=== PATIENT | male | born 1965 | race Caucasian/White ===

== ENCOUNTER 2016-05-16 18:15 | Inpatient (IN) | payer OTHER ==
[~2016-05-16] VITALS: Ht 175.3 cm; Wt 78.8 kg
--- NOTE | ~2016-05-16 | DS ---
PATIENT'S NAME: VITOR MELARA [facility] AGE: 50 Y [address] ROOM: [id number] [place] [address] [place] [facility] [place]: 05/16/2016 Discharge Summary DISCHARGE DATE: 05/17/2016 FAMILY PHYSICIAN: Sky Norwood MD ATTENDING PHYSICIAN: Dc Dunlap DISCHARGE DIAGNOSES: 1. 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 2. Esophagitis. 3. Thrush. 4. Metastatic melanoma. 5. Hypertension. DISCHARGE MEDICATIONS: Include, 1. Fluconazole 200 mg tablet p.o. daily as directed. 2. Gabapentin 300 mg p.o. t.i.d. 3. Keppra 500 mg p.o. b.i.d. 4. Prednisone 40 mg p.o. t.i.d. with a taper as directed. 5. Bystolic 10 mg p.o. daily. 6. Nystatin 1000 units/5 mL q.i.d. p.r.n. sore throat. 7. Omeprazole 20 mg p.o. b.i.d., may be substituted for Prevacid 15 mg p.o. b.i.d. 8. Bactrim DS 1 tablet b.i.d. on Mondays and . 9. Spironolactone 25 mg p.o. b.i.d. 10. Ambien 10 mg p.o. q.h.s. p.r.n. 11. Magic Mouthwash 5 to 10 mL swish and swallow p.r.n. 12. Mylanta 60 mL p.o. q. 20 minutes p.r.n. heartburn. HISTORY OF PRESENT ILLNESS/HOSPITAL COURSE: Vitor Melara is a 50-year-old male with a diagnosis of metastatic melanoma diagnosed on 02/13/2015 and for further evaluation and further records, please review the admission H and P. He has most recently received treatment with ipilimumab and nivolumab which were started on 02/26/2016 and completing two cycles before he had a whole- brain radiation, at which point a break in therapy occurred. Subsequently developed hospitalization on 05/01/2016, at which point, he was treated with high-dose steroids and infliximab before resolution of the diarrhea. He has been on a slow taper as an outpatient since but has increased diarrhea for two days prior to admission, and he felt he was becoming volume depleted and having increasing problems with eating and drinking and heartburn, so he was admitted on 05/16/2016 for further evaluation and treatment. His treatment included changing his oral steroids to Solu-Medrol 60 mg IV q.8 hours. Additionally, he was found to have significant thrush which was likely contributing to his significant heartburn. He was started on IV pantoprazole and treated for thrush with Diflucan and symptomatic measures including a GI cocktail and salt and soda rinses. His blood pressure was quite elevated at PATIENT'S NAME: VITOR MELARA [facility] AGE: 50 Y [address] ROOM: [place] [address] [place] [facility] [place]: 05/16/2016 Discharge Summary DISCHARGE DATE: 05/17/2016 FAMILY PHYSICIAN: Sky Norwood MD ATTENDING PHYSICIAN: Dc Dunlap presentation and he has been previously maintained on Bystolic 5 mg daily, this was increased on the evening he presented to the 10 mg that evening and then 10 mg daily thereafter with much better control of blood pressure. In the following 12 to 24 hours, his symptoms significantly improved and then the subsequent day he had no stools at all. His esophagitis complaints improved and resolved, and his thrush is markedly better with therapies given. As the patient is doing better, we will switch to oral prednisone and taper it as an outpatient and discharge the patient today. CONDITION UPON DISCHARGE: The patient is in very stable condition. No stools over the past 14 to 16 hours. His volume status is stable. His thrush is resolved and esophagitis is resolved. FOLLOWUP: Followup will be with CBCs once a week and phone calls twice a week to help with tapering his steroids. I will plan on seeing him back in three weeks in clinic as scheduled already. MD TAY ZAMORA/gabriel /[id number] d: 05/17/16 2247 t: 05/21/16 0753, DISCHARGE SUMMARY
[~2016-05-16 18:15] MED LIST: ALDACTONE25 MG PO; ALEVE220 M1; AMBIEN10 MG PO; ANUSOL-HC CREAM30 GM R; AQUAPHOR1 GM TOP; BACTRIM DS1 TAB PO; BYSTOLIC10 MG PO; BYSTOLIC5 MG PO; DECADRON4 MG PO; DELTASONE10 MG PO; KEPPRA500 MG PO; KEYTRUDA50 MG IV; NEURONTIN300 MG PO; NICODERM/HABITR21 MG TRANS; NORCO 5-325 MG1 TAB PO; PERCOCET 5-3251 EACH PO; TORADOL10 MG PO
[2016-05-16] MEDS ORDERED: MAG119MX MM (20:01)
[2016-05-16] MEDS ORDERED: MYLANTA (MAG-AL30 ML PO (20:02)
[2016-05-16] MEDS ORDERED: DIFLUCAN200 MG PO (20:03)
[2016-05-16] MEDS ORDERED: PREVACID15 MG PO (20:04)
[2016-05-16] MEDS ORDERED: PRILOSEC20 MG PO (20:04)
--- NOTE | 2016-05-17 02:13 | NUR ---
Pt arrived to floor around 184. Here to recieve Solu-medrol, and dehydration. Pt is having several loose stools a day, we are to keep close track while in hosptial. Long hx of cancer. HTN. Pt has hard time eating or drinking due to heartburn. Was just in the hospital about a week ago. Very hard stick but were able to get IV to the R)fa.
--- NOTE | 2016-05-17 05:11 | NUR ---
Significant Event: Pt is alert and oriented. Hypertensive on RA. Pt is a very hard poke, ER came up and placed an IV in the R)FA SL. Family is saying DR ordered fluids, but there were no orders written. Flu/pneumonia consents are in chart, needing to be signed. Ambulates independently. Follow Up: Continue to monitor stool output.
--- NOTE | 2016-05-17 17:30 | NUR ---
Significant Event:Is A/O.Has been pretty comfortable.States feels much better.No stools this shift.States mouth & throat feel much better too.Has been up.Eating/drinking well.No N/V.Has IV fld running at 20ml/hr TKO iv Rt.arm.Hoping to maybe go home. Follow up:
[2016-05-17] MEDS ORDERED: NYSTATIN100000 UNI PO (19:08)
--- NOTE | 2016-05-18 07:25 | NUR ---
Significant Event: PATIENT WAS DISCHARGE TO HOME AT 1900. MEDICATION LIST GONE OVER DISCHARGE INSTRUCTIONS AND TEACHING VERBALLY GONE OVER PATIENT VERBALLY ACKNOWLEDGES UNDERSTANDING. LET VIA WHEEL CHAIR AND WAS TRANSPORTED IN PARENTS VEHICLE. Follow up:
--- NOTE | 2016-05-22 09:49 | NUR ---
Post hospitalization follow up call made to patient. Patient reports he has no questions regarding his follow up and medications. Had a good hospital stay with the exception of his IV start, which he states took several attempts. Talked with patient about getting a port and he will discuss this with Dr. Dunlap. Will continue to follow patient as his navigator.
== END 2016-05-17 19:00 | disposition disaster alternative care site (69) | DRG 394 ==
LOC: GMSU 18:17
PROVIDERS: ADMIT Internal Medicine Hematology & Oncology
DX: K52.1 Toxic gastroenteritis and colitis (principal); C79.31 Secondary malignant neoplasm of brain; C43.59 Malignant melanoma of other part of trunk; I10 Essential (primary) hypertension; B37.9 Candidiasis, unspecified; K20.9 Esophagitis, unspecified; J45.909 Unspecified asthma, uncomplicated; F17.220 Nicotine dependence, chewing tobacco, uncomplicated; T38.0X5A Adverse effect of glucocorticoids and synthetic analogues, initial encounter
CPT/HCPCS: C9113; J2930; J7050

== ENCOUNTER → 2016-06-20 | Outpatient (CLI) | payer OTHER ==
[~2016-06-20] MED LIST changes: +ATIVAN 0.5MG0.5 MG PO; +DECADRON1 MG PO; +DIFLUCAN200 MG PO; +LEVOTHROID (SY50 MCG PO; +MAG119MX MM; +MORPHINE 20MG/ML PO; +MYCOSTATIN OINT30 GM TOP; +MYLANTA (MAG-AL30 ML PO; +NYSTATIN100000 UNI PO; +PREVACID15 MG PO; +PRILOSEC20 MG PO; +PRINIVIL (ZESTR20 MG PO; +TYLENOL325 MG PO
== END | disposition disaster alternative care site (69) ==
LOC: GRAD 12:56
DX: C43.59 Malignant melanoma of other part of trunk (principal); C79.31 Secondary malignant neoplasm of brain; C79.9 Secondary malignant neoplasm of unspecified site; G40.409 Other generalized epilepsy and epileptic syndromes, not intractable, without status epilepticus; K52.1 Toxic gastroenteritis and colitis
CPT/HCPCS: Q9967

== ENCOUNTER → 2016-07-16 | Outpatient (CLI) | payer OTHER, SELFPAY | END | disposition disaster alternative care site (69) | LOC: GRAD 13:18 | DX: M79.89 Other specified soft tissue disorders (principal); R22.1 Localized swelling, mass and lump, neck; G93.89 Other specified disorders of brain; Z85.841 Personal history of malignant neoplasm of brain; Z85.830 Personal history of malignant neoplasm of bone; Z85.05 Personal history of malignant neoplasm of liver; Z85.118 Personal history of other malignant neoplasm of bronchus and lung | CPT/HCPCS: A9577 ==

== ENCOUNTER → 2016-08-07 | Outpatient (CLI) | payer OTHER ==
--- NOTE | ~2016-08-07 | NDGEN ---
PATIENT'S NAME: VITOR DEL TORO [facility] AGE: 50 Y [address] ROOM: [place] [address] LOCATION: [facility] ADMIT DATE: 08/07/2016 Neurodiagnostics DISCHARGE DATE: FAMILY PHYSICIAN: Sky Norwood MD ATTENDING PHYSICIAN: Joi Rawls PROCEDURE: ELECTROENCEPHALOGRAM DATE OF PROCEDURE: 08/07/2016 TEST: TECH: CLINICAL DIAGNOSIS: DURATION OF EE minutes. REASON FOR EEG: Seizures. CLINICAL HISTORY: The patient is a 50-year-old male with history of melanoma with secondary metastasis to the brain who had a seizure one day prior to the recording, he is undergoing radiation at this time. EEG FINDINGS: The patient was awake for majority of the EEG. During the awake portions of EEG, a 10 to 11 Hz background is seen in the posterior head regions, which is symmetrical rhythmical waxing and waning. Activation procedures included photic stimulation between 3 to 30 Hz, which did not show any abnormalities. CLASSIFICATION: Normal, awake, drowsy, 10/20 scalp electrodes. IMPRESSION: This EEG is within normal limits. No epileptiform discharges or EEG seizures were seen during this recording. MD LIDA MOSLEY/gabriel /[id number] dtt: 08/13/16 1734 , CEDRIC RIBEIRO dtd: 08/12/16 1135
== END | disposition disaster alternative care site (69) ==
LOC: GNEU 10:00
DX: C79.31 Secondary malignant neoplasm of brain (principal); C80.1 Malignant (primary) neoplasm, unspecified

== ENCOUNTER → 2016-09-05 | Outpatient (CLI) | payer OTHER | END | disposition disaster alternative care site (69) | LOC: GRAD 09-04 13:00 | DX: C71.9 Malignant neoplasm of brain, unspecified (principal); G93.89 Other specified disorders of brain; Z92.3 Personal history of irradiation | CPT/HCPCS: A9577 ==

== ENCOUNTER 2016-09-21 06:10 | Observation (INO) | payer OTHER ==
[~2016-09-21] VITALS: Ht 172.7 cm; Wt 80.0 kg
--- NOTE | ~2016-09-21 | CON ---
PATIENT'S NAME: VITOR MELARA [facility] AGE: 50 Y [address] ROOM: [place] [address] [place] [facility] [place]: 09/21/2016 Consultation DISCHARGE DATE: FAMILY PHYSICIAN: Sky Norwood MD ATTENDING PHYSICIAN: Selina Nagy DATE OF CONSULTATION: 09/21/2016 REFERRING PHYSICIAN: Selina Nagy MD. LOCATION: [place] [address]. This is a palliative care referral for end of life and hospice discussion and goals of care. HISTORY OF PRESENT ILLNESS: This 50-year-old male was admitted on 09/21/2016, with increased confusion and falling. He has a known history of metastatic melanoma. He has been on immunotherapy and doing radiation and had 5 treatments of radiation, 07/28 radiation treatments for whole brain radiation. The patient had been falling more at home, more confused, and more agitated; and had a seizure. The patient had been on Keppra in the past. He was admitted to [facility] for higher level of care. The patient is lying in bed. He does answer questions somewhat appropriately. He knows his family, not time and place. He does complain of some headaches at times. He denies headaches at present time. He had been taking Tylenol a lot at home. No shortness of breath. No nausea or vomiting. Appetite had been good. The patient had been impulsive and getting up on his own, but unable to walk, so was crawling and pulling himself upstairs. PAST MEDICAL HISTORY: Metastatic melanoma, hypertension, and seizures. PAST SURGICAL HISTORY: Bladder surgery. Multiple surgeries to remove melanoma. SOCIAL HISTORY: He is , has 2 daughters. He has used chewing tobacco 1 can per day in the past. Alcohol history, 2 drinks a month. No known illicit drug use. ALLERGIES: PATIENT'S NAME: VITOR MELARA [facility] AGE: 50 Y [address] ROOM: [place] [address] [place] [facility] [place]: 09/21/2016 Consultation DISCHARGE DATE: FAMILY PHYSICIAN: Sky Norwood MD ATTENDING PHYSICIAN: Selina Nagy NO KNOWN ALLERGIES. HOME MEDICATIONS: 1. Dexamethasone 2 mg q.i.d. 2. Diflucan 200 mg daily, started on 09/20/2016. 3. Spironolactone 25 mg b.i.d. 4. Synthroid 0.05 mg daily. 5. Omeprazole 40 mg daily. 6. Diastolic 10 mg b.i.d. 7. Bactrim DS one tab b.i.d. 2 days a week. 8. Keppra 500 mg b.i.d. 9. Gabapentin 300 mg t.i.d. FAMILY HISTORY: Grandparents had heart disease. Father has diabetes. Mother has arthritis. REVIEW OF SYSTEMS: A complete review of systems was done and is negative except as mentioned in the HPI. PHYSICAL EXAMINATION: GENERAL: This is a 50-year-old male, in no acute distress. VITAL SIGNS: Temperature 98, pulse 79, respirations 18, and blood pressure 174/100. He is 5 feet 8 inches, weighs 176 pounds with BMI of 26.8. GENERAL: Alert to name and self, not place and time. SKIN: Warm and dry. Color pale. HEENT: Normocephalic and atraumatic. Sclerae are nonicteric. Conjunctivae are pale and pink. Mouth is dry and crusty. Tongue is coated. He states he had been started on Diflucan recently. LYMPHATICS: No cervical adenopathy or thyromegaly. RESPIRATORY: Clear to auscultation bilaterally. Breath sounds even and regular throughout. CARDIAC: S1 and S2 without murmurs or bruits. No lower extremity edema. ABDOMEN: Soft and nontender. Positive bowel tones. No hepatosplenomegaly. NEURO: Grossly intact. Increased weakness in lower extremities. MUSCULOSKELETAL: Decreased strength in extremities. EXTREMITIES: No cyanosis or deformities. Palliative performance scale is 40%. Mainly bed bound, unable to do most activity, total care, normal intake. Conscious level is drowsy with some confusion. LABORATORY DATA: White count is 6.8, hemoglobin 14.7, hematocrit 40.8, and platelets are 166. Sodium 131, potassium 4.0, glucose is 153, BUN 21, creatinine 0.8, albumin PATIENT'S NAME: VITOR MELARA [facility] AGE: 50 Y [address] ROOM: [place] [address] [place] [facility] [place]: 09/21/2016 Consultation DISCHARGE DATE: FAMILY PHYSICIAN: Sky Norwood MD ATTENDING PHYSICIAN: Selina Nagy 2.7, alkaline phosphatase is 73, AST is 39, and ALT is 120. GFR is greater than 70. IMAGING STUDIES: CT of the head revealed worsening overall appearance of the brain prior to imaging multiple hemorrhagic neoplastic lesions present with lesions in both central hemispheres. Lesions are increasing in size since prior imaging. Extensive vasogenic edema associated with brain lesions with extent and vasogenic edema appearing somewhat increased since prior imaging. No acute extra-axial hemorrhage or midline shift. IMPRESSION: Confusion, weakness, and fatigue and oral candidiasis. PLAN: Discussion of chronic condition and goals of care. Met with the patient and his mom, Ana Melara and father, Red Melara, and daughter, Aditi. Discussed overall conditions and discussion from Dr. Nagy. The patient states he knows his lesions are getting worse and he is having more difficulty taking care of himself. DISCUSSED GOALS OF CARE: 1. Wants to get home as soon as possible. 2. Talk with Dr. Dunlap and Dr. Sauer on recommendations for further treatment versus hospice. 3. To talk with hospice sales and marketing representative called [facility]. [facility], wafer production lead worker is coming up at 1600 today. 4. To go home and stay at home as long as possible. Prefers not to go to a care home if at all possible. Discussed safety factors that the patient may need to not get up and have help getting up and increased caregiving. Discussed the patient and family support at home. Code status and advanced directive. The patient is currently a do not resuscitate/do not intubate. We will check on advanced directive with family. RECOMMENDATIONS: Headache: Schedule some Tylenol q.i.d. The patient forgets to ask for Tylenol. He had been taking Tylenol pretty regular at home for his headaches. The patient does not like to take narcotics, makes him more confused, also has dexamethasone, increased dose ordered. Seizures, he is on Keppra and dexamethasone. Oral candidiasis, already on Diflucan. Had been on Magic Mouth but he doesn't like it. We will add saline rinses. We will follow up with the patient and family in the a.m. after talking with Dr. Dunlap on goals of care. PATIENT'S NAME: VITOR MELARA [facility] AGE: 50 Y [address] ROOM: [facility] [place] [place], [place] [address] [place] [facility] [place]: 09/21/2016 Consultation DISCHARGE DATE: FAMILY PHYSICIAN: Sky Norwood MD ATTENDING PHYSICIAN: Selina Nagy Thank you for allowing me to assist with this patient and family. MARY QUINTERO NP FOR MD ZENOBIA VELASQUEZ/modl /[id number] cc: [facility] Hemotology d: 09/22/16 1218 t: 09/26/16 1712, CONSULTATION REPORT
--- NOTE | ~2016-09-21 | CON ---
PATIENT'S NAME: VITOR DEL TORO [facility] AGE: 50 Y [address] ROOM: [place] [address] LOCATION: [facility] [place] ADMIT DATE: 09/21/2016 Consultation DISCHARGE DATE: FAMILY PHYSICIAN: Sky Norwood MD ATTENDING PHYSICIAN: Selina Nagy REFERRING PHYSICIAN: Steve Armijo MD CHIEF COMPLAINT: Seizure. HISTORY OF PRESENT ILLNESS: The patient is a 50-year-old gentleman with past medical history of metastatic melanoma, he has been treated with PD-1 checkpoint inhibitor and [id number] inhibitor with history of brain radiation, who presents here with seizure. The patient was admitted on September 21, 2016 when he experienced seizure. According to mother, the patient has multiple seizures in the past, but however, this seizure was noted to be worse than other. The patient was transferred to our hospital and had a CT in the emergency department. CT showed worsening in all over appearance of the brain since prior imaging with multiple hemorrhagic neoplastic lesions, presented with lesions in both cerebral hemisphere. Lesions are increased in size with prior imaging and also extensive vasogenic edema cessation with brain lesion with extent of vasogenic edema appearing somewhat increased since prior imaging. Of note, the patient had rapid response called this morning for tonic-clonic seizure. The seizure lasted a few minutes. No medication was given. The patient was improved and there was no postictal confusion. The patient currently denies headache, vision change, abdominal pain, nausea, vomiting, chest pain, fever, chills, diarrhea, or constipation. MEDICAL HISTORY: 1. Metastatic melanoma. 2. Hypertension. 3. Seizure disorder. SURGICAL HISTORY: Brain radiation. FAMILY HISTORY: Breast cancer in grandmother and father has a history of hypertension. SOCIAL HISTORY: The patient chew tobacco and have one or two beers occasionally. MEDICATIONS: Please see MAR. PATIENT'S NAME: VITOR [facility] AGE: 50 Y [address] ROOM: [place] [address] LOCATION: [facility] [place] ADMIT DATE: 09/21/2016 Consultation DISCHARGE DATE: FAMILY PHYSICIAN: Sky Norwood MD ATTENDING PHYSICIAN: Selina Nagy REVIEW OF SYSTEMS: All systems have been reviewed and are negative except what is mentioned in the HPI. PHYSICAL EXAMINATION: VITAL SIGNS: Temperature 96.8, blood pressure 144/106, pulse of 73, respiratory rate 14. GENERAL APPEARANCE: The patient alert and awake in bed, in no acute distress. CHEST: Clear to auscultation bilaterally. HEAD: Normocephalic, atraumatic. NOSE: No nasal bleeding. EARS: No ear discharge. EYES: Extraocular muscle intact. CHEST: Clear to auscultation bilaterally. HEART: Regular rate and rhythm. No murmurs, rubs, or gallops. ORAL CAVITY: Moist oral cavity. ABDOMEN: Soft, nontender, and nondistended. Bowel sounds present. MUSCULOSKELETAL: Range of motion intact. No obvious joint effusion. FLIGHT/TRANSPORT NURSE: The patient is alert and oriented x3. Motor and sensory grossly intact. LABORATORY DATA: Lab drawn from yesterday shows BUN of 21, creatinine 0.8, sodium 131, potassium of 4, chloride 100, CO2 of 18. CBC shows white blood cell count 6.8, hemoglobin 4.7, platelet of 166. ASSESSMENT AND PLAN: 1. Seizure disorder. Etiology secondary to metastatic melanoma with worsening image. The patient currently on 500 Keppra p.o. The patient experienced tonic-clonic seizure today, I was present at the bedside. The patient's seizure lasted a few minutes with no postictal confusion; however, does not remember the event. No tongue biting. No urinary incontinence. We will continue to have 2 mg Ativan p.r.n. every 5 minute for seizure. We will increase Keppra from 500 b.i.d. to 1000 b.i.d. we will give the first 1000 mg via IV seizure precaution. We will hold radiation today. We will follow clinically. 2. Metastatic melanoma. The patient is scheduled for a brain radiation; however, due to today's event, we will hold radiation and we will see how he does with 1000 mg Keppra. 3. Hypertension, uncontrolled. The patient currently on his home dose of Bystolic and will add his home dose of spironolactone 25 mg p.o. b.i.d. 4. Palliative care. The patient is currently on palliative care and is getting his radiation with Palliative Care on board. The patient is scheduled to go home after radiation. The patient reports to have one or two beers while he is here. We will allow the patient to have one or two PATIENT'S NAME: VITOR [facility] AGE: 50 Y [address] ROOM: [place] [address] LOCATION: [facility] [place] ADMIT DATE: 09/21/2016 Consultation DISCHARGE DATE: FAMILY PHYSICIAN: Sky Norwood MD ATTENDING PHYSICIAN: Selina Nagy can of 12 ounce in 24 hours while he is here. Greater than 30 minutes critical care was spent on the patient's care due to the rapid response and seizure. Discussed case with Dr. Baum and Dr. Sauer. We will hold radiation today as the patient is having multiple seizures since yesterday's admission and will to be on risk to have seizure while on radiation. We will increase the patient's Keppra to 1000 and observe overnight. MD SONY GAO/gabriel /[id number] d: 09/22/16 1510 t: 09/28/16 1223, CONSULTATION REPORT
--- NOTE | ~2016-09-21 | HP ---
PATIENT'S NAME: VITOR DEL TORO [facility] AGE: 50 Y [address] ROOM: [address] [address] LOCATION: [facility] ADMIT DATE: 09/21/2016 History & Physical DISCHARGE DATE: FAMILY PHYSICIAN: Sky Norwood MD ATTENDING PHYSICIAN: Patti Nagy DATE OF SERVICE: REASON FOR HOSPITALIZATION: The patient is a 50-year-old male, who has been diagnosed with metastatic melanoma, and he has been on PD-1 checkpoint inhibitor as well as anti CTLA-4 inhibitors with progressive disease. He was treated recently with whole-brain radiation in April for brain metastases. Most recently, the patient had increase in size in his brain lesions, and he has received 5 days of lower dose of radiation to help treat his brain mets. The patient's mother called me yesterday, and said that he is more agitated and a little bit confused and having some problems with sore throat. She did not want to bring him into the emergency room; however, we did get him some Diflucan, which seemed to help with his sore throat. This morning, the patient had a seizure, that was much bigger than his usual seizures, so the ambulance brought him into the emergency room. When the patient was getting a CT scan done in the emergency room, he did have another seizure. The patient's mother says that he does have little seizures where he just kind of tremors and jerks a little bit, but he can "get himself out of it." The patient does have headaches. These headaches do come and go, but he has not taken much in the way of pain medication because he does not want to get addicted to it, although he does have some oxycodone at home. The patient was thinking about getting set up on hospice prior to when his radiation started approximately a week and half ago; however, he was told that he could not be on radiation and be on hospice at the same time. PAST MEDICAL HISTORY: Really is metastatic melanoma, little hypertension. SOCIAL HISTORY: The patient has 2 children, a 19-year-old and a 14-year-old. He does chew tobacco. MEDICATIONS: He is on: PATIENT'S NAME: VITOR DEL TORO [facility] AGE: 50 Y [address] ROOM: [id number] [place], [place] [address] LOCATION: [facility] ADMIT DATE: 09/21/2016 History & Physical DISCHARGE DATE: FAMILY PHYSICIAN: Sky Norwood MD ATTENDING PHYSICIAN: Patti Nagy 1. Dexamethasone 2 mg p.o. q.i.d. 2. Diflucan 200 mg daily, started on 09/20/2016. 3. Spironolactone 25 mg b.i.d. 4. Synthroid 0.05 mg a day. 5. Omeprazole 40 mg a day. 6. Bystolic 10 mg b.i.d. 7. Bactrim DS one p.o. b.i.d. 2 days a week. 8. Keppra 500 mg p.o. b.i.d. 9. Gabapentin 300 mg t.i.d. PHYSICAL EXAMINATION: GENERAL: The patient is alert and oriented, and appears to be in no distress. HEENT: His pupils appear to be fairly equal. There is no scleral icterus present. Extraocular muscles are intact. Mouth is dry. His tongue has a little crusting on it. NECK: Supple without adenopathy or thyromegaly. Trachea is in the midline. HEART: Regular. Lungs are clear anteriorly. ABDOMEN: Mildly distended, but it is soft and non-tympanic to percussion. EXTREMITIES: He has a few ecchymoses on his lower extremities, but he has no edema present. NEURO: He does move all the extremities appropriately, and there are no focal deficits noted at this time. IMAGING DATA: CT scan done in the emergency room showed significant increased size in his lesions in his brain compared to 09/05/2016 and 07/16/2016, left frontal lesion was 1.7 cm, now is 2.6 cm, several other ones are larger, and he does have increased vasogenic edema as well. IMPRESSION: 1. Metastatic melanoma with increasing size of his brain lesions after 5 days of radiation, and it is very likely not going to be beneficial for him, and his mother does say it is getting more difficult to get him over to radiation. 2. Thrush, on Diflucan. 3. Headache seemed to be okay at this time. RECOMMENDATIONS: 1. I talked with the patient and his parents about options at this point. I do agree that hospice would be in his best benefit. I did tell them that I am not really optimistic that radiation is actually going to slow down the progression of his tumor. 2. The patient did ask me how he was going to and if it was going to be painful. I did tell him that we have a lot of supportive medications that can help with pain from his headaches. Otherwise, I did not think PATIENT'S NAME: VITOR DEL TORO [facility] AGE: 50 Y [address] ROOM: [address] [address] LOCATION: [facility] ADMIT DATE: 09/21/2016 History & Physical DISCHARGE DATE: FAMILY PHYSICIAN: Sky Norwood MD ATTENDING PHYSICIAN: Patti Nagy that it would be painful. He could either get more somnolent or have seizure activity that could cause him to be more obtunded and just lose consciousness and pass away, or if he does have significant problems with headaches, sometimes narcotics can make him more obtunded and dehydrated etc., and have him pass away peacefully. 3. The patient is worried about what to tell his children. They did not know how sick he is, and I told him that palliative care nurses and hospice could help assist with that conversation. 4. The patient really would like to get home. He is still considering going to [facility] just to see if they have anything else to offer him, although I do not hope that lot of help that he be able to get up there just because of his decreased performance status and they likely do not have anything to offer. PATTI NAGY MD CML/modl /[id number] D: T: 609 HISTORY & PHYSICAL
--- NOTE | ~2016-09-21 | DS ---
PATIENT'S NAME: VITOR MELARA [facility] AGE: 50 Y [address] ROOM: [facility] [place], [place] [address] LOCATION: [facility] ADMIT DATE: 09/21/2016 Discharge Summary DISCHARGE DATE: 09/23/2016 FAMILY PHYSICIAN: Sky Norwood MD ATTENDING PHYSICIAN: Selina Nagy HISTORY OF PRESENT ILLNESS: Mr. Vitor Melara is a 50-year-old male, who was admitted to the hospital for evaluation and treatment of tonic- clonic seizures and headaches. The history of the present illness and past medical history is well-documented in Dr. Nagy' history and physical, as well as the consultations from Dr. Sebastian and Yue Townsend APRN, and will not be repeated here. LABORATORY AND X-RAY: Upon admission, the white count was 6800 with 79% neutrophils, the hemoglobin was 14.7, the MCV was 108, and the platelets were 166,000. The INR was 0.9 and the PTT was 22. The CMS upon admission revealed that the sodium was 131, the glucose was 153 mg/dL, the calcium was 8.1 mg/dL, and the albumin was 2.7 g/dL; the ALT was 120 international units/L. On the day of dismissal, the sodium was 134 mmol/L and the glucose was 128. CAT scan of the brain was compared to the MRI study done on 09/05/2016. There were persistent and multiple hemorrhagic lesions in the brain parenchyma. The lesions had increased in size. A lesion in the inferior left frontal lobe had increased from 1.7 cm to 2.6 cm. A lesion in the left occipital lobe had increased to 3.1 cm. A lesion in the high right parietal lobe had increased from 3.7 cm to 4.2 cm. A lesion in the right frontal lobe had increased from 1.6 cm to 1.9 cm. The vasogenic edema was worse as well. HOSPITAL COURSE: The patient was admitted. The aforementioned laboratory and x-rays were obtained. Dr. Sauer visited with the patient about the potential benefit and potential harm of further radiation therapy. The patient initially decided to pursue radiation, but quickly decided not to. The levetiracetam dose was checked. The levetiracetam level was 14 ug/mL with the upper limits of normal being 30 ug/mL. Dr. Sebastian increased the patient's levetiracetam dose from 500 b.i.d. to 1000 b.i.d. The patient's dexamethasone was increased from 2 mg p.o. t.i.d. as an outpatient to 4 mg p.o. q.i.d. The patient had several tonic-clonic seizures while hospitalized. However, his headache improved and his seizures were under control at the time of his discharge. We felt this happy result was probably due to the increased dexamethasone and t levetiracetam. He was also on gabapentin and this was continued. Yue Townsend followed the patient for palliative care and visited with the patient and family regarding his situation. The patient developed impressive systolic and diastolic hypertension while in the hospital, although it is unclear whether this was symptomatic. On the day of dismissal, his blood pressure was 175/115 without any symptoms. His antihypertensives were adjusted by the PATIENT'S NAME: VITOR MELARA [facility] AGE: 50 Y [address] ROOM: [place] [address] LOCATION: [facility] ADMIT DATE: 09/21/2016 Discharge Summary DISCHARGE DATE: 09/23/2016 FAMILY PHYSICIAN: Sky Norwood MD ATTENDING PHYSICIAN: Selina Nagy hospitalist. We also believe his arterial hypertension is due to increased intracranial hypertension, and believe this should improve if the dexamethasone is effective. We acknowledged his situation was grim, and the patient chose to go on Hospice. He was reassured that if he developed status epilepticus, he could be re-hospitalized. If he developed unacceptable headaches, palliative sedation with a possible combination of ketamine, fentanyl, and midazolam could be employed. The [facility] saw the patient in consultation, and admitted him to their service. When these arrangements were made, the patient was discharged on 09/23/2016. DISCHARGE DIAGNOSES: 1. Tonic-clonic seizures and headaches due to increased intracranial pressure due to stage IV cutaneous melanoma. 2. 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 3. Hypertensive urgency secondary to essential arterial hypertension and increased intracranial pressure. 4. History of alcoholism. 5. Fecal and urinary incontinence secondary to #1. 6. Grade 3 colitis secondary to ipilimumab plus nivolumab, quiescent. DISCHARGE MEDICINES: 1. APAP 650 mg p.o. four times daily. 2. Dexamethasone 4 mg p.o. q.i.d. 3. Fluconazole 200 mg p.o. b.i.d. 4. Gabapentin 300 mg p.o. t.i.d. 5. Levetiracetam 1000 mg p.o. b.i.d. 6. Levothyroxine sodium 0.05 mg p.o. every 24 hours. 7. Nebivolol 15 mg p.o. b.i.d. 8. Nystatin ointment to both groins q.i.d. 9. Pantoprazole 40 mg p.o. q.24 hours. 10. Spironolactone 25 mg p.o. b.i.d. 11. Bactrim DS one tablet p.o. Thursday and . 12. Zolpidem tartrate 10 mg p.o. at bedtime. 13. Mylanta 15 mL p.o. p.r.n. heartburn. 14. Roxanol 5 mg p.o. every three hours p.r.n. pain and dyspnea. 15. Lorazepam 0.5-1 mg sublingually every four hours p.r.n. anxiety and seizures. DISCHARGE DISPOSITION: The patient will be discharged home on the [facility] Service. PATIENT'S NAME: VITOR MELARA [facility] AGE: 50 Y [address] ROOM: [place] [address] LOCATION: [facility] ADMIT DATE: 09/21/2016 Discharge Summary DISCHARGE DATE: 09/23/2016 FAMILY PHYSICIAN: Sky Norwood MD ATTENDING PHYSICIAN: Selina Nagy MD GKB/modl /[id number] CC: MD Viri Garcia MD Fishel Z Liberman, MD, PhD [facility] d: 09/24/16 0648 t: 09/25/16 0932, DISCHARGE SUMMARY
--- NOTE | ~2016-09-21 | ER ---
PATIENT'S NAME: VITOR DEL TORO [facility] AGE: 50 Y [address] ROOM: [place] [address] LOCATION: [facility] ADMIT DATE: 09/21/2016 ER/Outpatient Report DISCHARGE DATE: FAMILY PHYSICIAN: Sky Norwood MD ATTENDING PHYSICIAN: Tyson James Time of Arrival: 0610 hours. Time of Evaluation: 0610 hours. CHIEF COMPLAINT: Seizure, headache. HISTORY OF PRESENT ILLNESS: The patient is a 50-year-old male who presents to the emergency department today with chief complaint of seizure and headache. The patient has a history of metastatic melanoma. He is on Keppra. The patient has been doing chemo and radiation. His last chemo, he reports was on Thursday. The patient usually has 1 seizure a day. He has had increased seizures. His mother reports that he has had increasing issues as well as increased confusion. He has also been unable to walk at home. Denies any fevers or chills. No nausea or vomiting. No diarrhea or constipation. Denies any chest pain or shortness of breath. The patient does complain of headache on the left frontal region. PAST MEDICAL HISTORY: Metastatic melanoma, hypertension, seizures. PAST SURGICAL HISTORY: Bladder surgery, multiple surgeries to remove melanoma. SOCIAL HISTORY: The patient uses chewing tobacco 1 can per day. Drinks alcohol 2 times per month. Denies any illicit drug use. ALLERGIES: NO KNOWN DRUG ALLERGIES. MEDICATIONS: Please see list. PRIMARY CARE DOCTOR: Sky Norwood MD. REVIEW OF SYSTEMS: All systems are reviewed by myself and negative with the exception of those discussed in HPI and past medical history. PATIENT'S NAME: VITOR DEL TORO [facility] AGE: 50 Y [address] ROOM: [place] [address] LOCATION: ED ADMIT DATE: 09/21/2016 ER/Outpatient Report DISCHARGE DATE: FAMILY PHYSICIAN: Sky Norwood MD ATTENDING PHYSICIAN: Tyson James PHYSICAL EXAMINATION: VITAL SIGNS: Weight 85.8 kg. Blood pressure 186/112, pulse 91, respiratory rate 16, temperature 98.6, oxygen saturation 99% on room air. GENERAL: The patient is a 50-year-old male, who appears stated age. No acute distress. HEENT: Normocephalic, atraumatic. Pupils are equal, round, and reactive to light and accommodation. Extraocular motions are intact. Nares are patent bilaterally. TMs are clear. Oropharynx is clear. No tongue lacerations noted. NECK: Supple. There is no midline tenderness to palpation. CARDIOVASCULAR: Regular rate and rhythm. No murmurs, rubs, or gallops. LUNGS: Clear to auscultation bilaterally. No wheezes, rales, or rhonchi. ABDOMEN: Soft, nontender, and nondistended. No rebound, rigidity, or guarding. MUSCULOSKELETAL: The patient moves all 4 extremities. SKIN: Warm and dry. LABORATORY DATA AND X-RAYS: CT scan of the brain was obtained. I have discussed the results with radiologist, did show worsening lesions in the brain compared to 09/05/2016 MRI. There is edema surrounding. CBC is unremarkable. CMP unremarkable except for sodium of 131, CO2 18. AST is normal. ALT is 120. PTT is 22. INR is normal. IMPRESSION: 1. Worsening metastatic melanoma lesions in the brain. 2. Worsening seizures due to worsening metastatic melanoma lesions in the brain. 3. Initial visit. EMERGENCY DEPARTMENT COURSE: The patient was brought back to the examination room. Seen and evaluated by myself. IV was established. Laboratory analysis and imaging are obtained as described above. I have discussed the results with the patient and his parents are at the bedside. The patient is having increased confusion. He is having difficulties with walking. I have discussed the case with Dr. Linda, who is on-call for the patient's primary care doctor. I have also discussed the case with Dr. Nagy, who is on-call for the patient's oncologist. Dr. Nagy will admit the patient for further evaluation, treatment, and management. The patient is given a liter of normal saline, 10 mg of dexamethasone IV as well as 1 mg of Ativan IV. DISPOSITION: PATIENT'S NAME: VITOR DEL TORO [facility] AGE: 50 Y [address] ROOM: [place], [place] [address] LOCATION: [facility] ADMIT DATE: 09/21/2016 ER/Outpatient Report DISCHARGE DATE: FAMILY PHYSICIAN: Sky Norwood MD ATTENDING PHYSICIAN: Tyson James The patient will be admitted under the care of Dr. Nagy in stable condition. DO STAN MANCUSO/gabriel /[id number] d: 09/21/16 0847 t: 09/24/16 0640, OUTPATIENT REPORT
[~2016-09-21 06:10] MED LIST changes: -ATIVAN 0.5MG0.5 MG PO; -DECADRON1 MG PO; -LEVOTHROID (SY50 MCG PO; -MORPHINE 20MG/ML PO; -MYCOSTATIN OINT30 GM TOP; -PRINIVIL (ZESTR20 MG PO; -TYLENOL325 MG PO
[2016-09-21 06:35] LABS: BASOPHIL % 0.3 %; EOSINOPHIL % 0.1 %; HEMATOCRIT 40.8 % (37.0-53.0); HEMOGLOBIN 14.7 g/dL (12.0-17.0); IMMATURE GRANULOCYTE # 0.3 K/uL (0.0-0.3); IMMATURE GRANULOCYTE % 4.1 %; LYMPHOCYTE # 0.7 K/uL (0.8-4.0); LYMPHOCYTE % 9.7 %; MCH 39.1 pg (27.0-34.0); MCV 108.5 fl (83.0-98.0); MONOCYTE # 0.5 K/uL (0.0-1.0); MONOCYTE % 7.2 %; MPV 8.4 fl (9.4-12.4); NEUTROPHIL # (ANC) 5.3 K/uL (1.4-9.0); NEUTROPHIL % 78.6 %; NRBC % 0.3 /100WBC (0-0.00); PLATELET COUNT 166 K/uL (150-450); RBC 3.76 M/uL (4.00-6.00); RDW-CV 11.6 % (11.9-14.6); WBC 6.8 K/uL (4.0-11.0)
[2016-09-21 06:52] LABS: ALBUMIN 2.7 gm/dL (3.5-5.0); ALK PHOS 73 IU/L (33-138); ALT 120 IU/L (12-78); BLOOD UREA NITROGEN 21 mg/dL (6-24); CALCIUM 8.1 mg/dL (8.5-10.5); CHLORIDE 100 mMol/L (96-110); CO2 18 mMol/L (22-32); CREATININE 0.8 mg/dL (0.6-1.3); ESTIMATED GFR (MDRD EQUATION) > 60; INR - (THERAPEUTIC) 0.92 (0.92-1.07); PROTIME 9.6 SECONDS (9.8-11.4); PTT 22 SECONDS (25-32); SODIUM 131 mMol/L (135-145); TOTAL BILIRUBIN 0.3 mg/dL (0.0-1.5); TOTAL PROTEIN 6.4 g/dL (6.0-8.4)
[2016-09-21 06:56] LABS: AST 39 IU/L (10-40)
--- NOTE | 2016-09-21 18:52 | NUR ---
Significant Event: PT ADMITTED TO THE FLOOR AT 1035 FROM ER. PT LIVES AT HOME WITH HIS PARENTS. ACCORDING TO THE PT'S MOTHER, THE PT HAD A SEIZURE AT HOME ABOUT 0200, AND ALSO HAS DAILY SEIZURES. THE PT HAD AN INCREASING HEADACHE AND WAS BROUGHT TO ER. WHEN THE PT WAS IN CT THIS MORNING, HE HAD ANOTHER SEIZURE. THE PT HAS HAD FREQUENT FALLS AT HOME RECENTLY AND CONFUSION HAS BEEN INCREASING. SINCE ARRIVAL TO THE FLOOR, PT IS DISORIENTED TO TIME. FOLLOWS COMMANDS. PERRLA. EQUAL STRENGTH X4. HEAVY 2-ASSIST. UP IN THE CHAIR THIS AFTERNOON. TAKES MEDICATIONS WHOLE WITH WATER. COMPLAINS OF OCCIPITAL HEADACHE; DENIES ANY NEED TO PAIN MEDICATIONS. VOIDS PER URINAL. IMPULSIVE AT TIMES. HI-LO BED IN PLACE. TRISTA-AREA/SCROTUM/BUTTOCKS ARE REDDENED. BILATERAL LOWER LEGS AND BACK ARE ECCHYMOTIC. IV TO R)WRIST SALINE LOCKED. IV DEXAMETHASONE GIVEN X1. PARENTS AND NUMEROUS VISITORS HAVE BEEN AT BEDSIDE THIS AFTERNOON. Follow up: ALARMS ON AT ALL TIMES; DISCUSS PLAN OF CARE TOMORROW WITH ONCOLOGIST AND THEN POSSIBLY HOME WITH HOSPICE?
--- NOTE | 2016-09-22 00:15 | NUR ---
Significant Event: PATIENT TRANSFERRED TO [facility] AT 2200. PATIENT A/OX2. DENIES N/T. MODERATE STRENGTH. COMPLAINS OF HEADACHE. TYLENOL GIVEN FOR PAIN. SBP IN 140S. AFEBRILE. LUNGS CLEAR ON ROOM AIR. THREADY PULSES IN LOWER EXTREMITIES. LIMBS COOL TO TOUCH. REGULAR DIET. IV TO RIGHT WRIST SALINE LOCKED. NO S/S OF SEIZURES. UP HEAVY TWO ASSIST PIVOT. IMPULSIVE AT TIMES. IN HIGH-LOW BED. ALARMS ON FOR SAFETY. Follow up:
--- NOTE | 2016-09-22 04:51 | NUR ---
SIGNIFICANT EVENT: Pt alert, forgetful. Hypertensive - 144 to 153 over 100 to 106, other VSS on RA. ACHS accuchecks. DNR/DNI. Transferred from [facility] at approx 2200. Metastatic melanoma - several sites. Seizure precautions, last seizure activity was at approx 0630 on 09/21/16. Heavy 2PA, stand and pivot to commode or chair. Voids per urinal. Regular diet. Possible DC home today on hospice? Family/pt need to decide if they are going to continue chemo tx. Father at bedside. Pt is cooperative with cares.
--- NOTE | 2016-09-22 10:20 | NUR ---
Spoke with Aixa with Palliative Care. She has meet with patient and his parents. [facility] but patient not sure he is ready for hospice yet. May still do a few rounds of radiation. I will plan to see. 1130 Walked into room and patients mom's asked me to find the nurse. Called patients nurse and she went to room. 1140 Aixa updated me that patient had a seizure and not home today for sure. Will plan to see tomorrow.
--- NOTE | 2016-09-22 11:25 | NUR ---
Patient was found unresponsive with seizure activity. Nurse called rapid response. to room along with response team. Patient was unresponsive for approximately 4-5 minutes. Patient then became responsive and come out of the seizure activity. Blood pressure continues to be high. MD aware of this. New orders received.
[2016-09-22] MEDS ORDERED: DECADRON1 MG PO (11:57)
[2016-09-22] MEDS ORDERED: LEVOTHROID (SY50 MCG PO (11:57)
--- NOTE | 2016-09-22 18:57 | NUR ---
Significant Event: Patient alert to self only. Confused to time and place. 2 assist either to commode or use urinal. Do not have patient stand to use urinal as he is unsteady. Seizure precuations. High low bed and needs alarms as he is impulsive. Telemetry on with no calls. Saline lock intact. Patient having high blood pressure. Dr.Chadd Norwood called and gave hospitalist consult. At 1125 patient had a seizure where he was unresponsive. Rapid response called. Patient became responsive after about 5 minutes. MD at bedside. New orders for IV Keppra and IV Vasotec. Family at bedside most of the day. Patient will continue with radation treatments. Pallative care. At 1730 patient tried to stand at the bedside to use urinal before nursing staff got to the room and was found slid to the floor right by the bed. No apparent injuries. Vitals and nuero checks started per protocol. MD notified and family was present. Follow up:
--- NOTE | 2016-09-23 02:44 | NUR ---
Significant Event: Pt alert but only oriented to self. confused and forgetful. 2 assist. no seizure activity noted this shift. MOM at bedside but pt can be impulsive. frequent reminders and cues. hypertensive MD notified continue to monitor. high/low bed. bed alarm on at all times. pt can have 2 beers in 24 hours. tele on. seizure precautions. palative see yesterday. pt also had fall yesterday. DNR.pt is pleasent with cares. Follow up:fall risk, monitor for seizure activity.
--- NOTE | 2016-09-23 09:35 | NUR ---
Beth with [facility] left a message that I needed to check on inpatient Hospice benefits. 1020 Called insurance, on hold 35 minutes. Patient does have inpatient hospice benefits, we just need to download a form from the computer and fax it in to notify them. 1105 Called Beth. She stated plans changed about 30 minutes ago and patient is going home today with their service. 1110 Spoke to Aixa with Palliative. 1115 Introduced self/role to patient and his parents. Let them know about Hospice benefits. 1520 Aixa called and orders were faxed to [facility].
[2016-09-23 10:35] LABS: ALBUMIN 3.1 gm/dL (3.5-5.0); ALK PHOS 61 IU/L (33-138); ALT 101 IU/L (12-78); ANION GAP 14.7 (10.0-19.0); AST 27 IU/L (10-40); BLOOD UREA NITROGEN 25 mg/dL (6-24); CALCIUM 8.5 mg/dL (8.5-10.5); CHLORIDE 97 mMol/L (96-110); CO2 27 mMol/L (22-32); CREATININE 0.9 mg/dL (0.6-1.3); ESTIMATED GFR (MDRD EQUATION) > 60; POTASSIUM 4.7 mMol/L (3.7-5.1); SODIUM 134 mMol/L (135-145); TOTAL BILIRUBIN 0.3 mg/dL (0.0-1.5); TOTAL PROTEIN 6.5 g/dL (6.0-8.4)
[2016-09-23] MEDS ORDERED: TYLENOL325 MG PO (15:40)
[2016-09-23] MEDS ORDERED: MYCOSTATIN OINT30 GM TOP (15:45)
[2016-09-23] MEDS ORDERED: MORPHINE 20MG/ML PO (15:50)
[2016-09-23] MEDS ORDERED: ATIVAN 0.5MG0.5 MG PO (15:53)
[2016-09-23] MEDS ORDERED: PRINIVIL (ZESTR20 MG PO (16:11)
--- NOTE | 2016-09-23 17:00 | NUR ---
DISCHARGE: D: ORDERS RECEIVED FOR THE PATIENT TO BE DISCHARGED TO HOME TODAY WITH HOSPICE. I: DISMISSAL INSTRUCTIONS WERE PREPARED AND REVIEWED WITH THE PATIENT PRESENT AND HIS MOTHER/FATHER VIRTUALLY. THE FOLLOWING INFOMRATION WAS DISCUSSED INCLUDING [place] TEACHING SHEETS PROVIDED: SEIZURES, FIRST AID: SEIZURES, MEDICINES FOR PARTIAL SEIZURES, CONTROLLING HIGH BLOOD PRESSURE, MORPHINE SULFATE, LORAZEPAM AND LISINOPRIL. FAMILY WENT AND FILLED THE PRESCRIPTIONS BEFORE 1730 AT [facility]. R: THE PATIENT FAMILY BOTH VERBALIZED UNDERSTANDING OF THE DISMISSAL INSTRUCTIONS WITH NO FURTHER QUESTIONS. P: THE ABOVE INFORMATION WAS SHARED WITH THE PRIMARY NURSE AND THE CHARGE NURSE THAT THE [facility] DISMISSAL EDUCAITION WAS COMPLETED. THE PAIENT IS READY FOR DISCHARGE TO THE FRONT DOOR VIA WHEEL CHAIR BY NURSING STAFF.
--- NOTE | 2016-09-30 10:22 | NUR ---
Post hospitalization follow up call made, spoke with patient's mother, Ana. Reports that patient is "100% better" and has had no seizures since seizure medication was adjusted. Mother sees patient declining, has increased swelling of legs, no mottling. Is currently on Hospice and she has called Hospice nurses to report symptoms. Daughters are staying close. [place] hospitalization went ok, patient has been restless. will continue to follow.
== END 2016-09-23 17:45 | disposition hospice, home (50) ==
LOC: GMED 06:10 → GMSU 09:34 → GNTU 09:34 → GMSU 22:10
PROVIDERS: Emergency Medicine; Internal Medicine; ADMIT Internal Medicine Hematology & Oncology
DX: G40.89 Other seizures (principal); C79.31 Secondary malignant neoplasm of brain; G44.89 Other headache syndrome; I16.0 Hypertensive urgency; I10 Essential (primary) hypertension; C78.00 Secondary malignant neoplasm of unspecified lung; C77.3 Secondary and unspecified malignant neoplasm of axilla and upper limb lymph nodes; R15.2 Fecal urgency; N39.41 Urge incontinence; K52.89 Other specified noninfective gastroenteritis and colitis
CPT/HCPCS: G0378; J1100; J1953; J2001; J2060; J2405; J7030; J7040; J7050

== ENCOUNTER → 2016-09-21 | Outpatient (CLI) | payer OTHER | END | disposition disaster alternative care site (69) | LOC: GAMB 05:54 | DX: R51 Headache (principal); C71.9 Malignant neoplasm of brain, unspecified; R53.1 Weakness; R56.9 Unspecified convulsions | CPT/HCPCS: A0425; A0429 ==

== ENCOUNTER 2016-10-04 06:13 | Inpatient (IN) | payer OTHER ==
[~2016-10-04] VITALS: Ht 172.7 cm; Wt 82.4 kg
--- NOTE | ~2016-10-04 | CON ---
PATIENT'S NAME: VITOR DEL TORO [facility] AGE: 50 Y [address] ROOM: [id number] [place], [place] [address] LOCATION: GICU ADMIT DATE: 10/04/2016 Consultation DISCHARGE DATE: 10/04/2016 FAMILY PHYSICIAN: Sky Norwood MD ATTENDING PHYSICIAN: Alfredo Ruiz DATE OF CONSULTATION: 10/04/2016 REFERRING PHYSICIAN: Chiqui Morin MD LOCATION: ICU Room 6215. CHIEF COMPLAINT: Palliative Care referral for code status and comfort measures. HISTORY OF PRESENT ILLNESS: The patient is a 50-year-old male with a known history of metastatic melanoma with metastases to the brain, who was recently hospitalized on September 21 through the , and was discharged home with [facility]. Apparently, over the last couple of days, the patient had been refusing to take pain medications as well as his seizure medications, and had presented to the ER this morning with several generalized tonic-clonic seizures lasting up to 45 minutes per his parents' report. They also report that the day before presentation, he had been complaining of a severe headache. SUMMARY: At the time of my consult, the patient is in the Intensive Care Unit, and the family is at bedside. Shortly after my arrival to the floor, the patient became apneic and was bagged by Respiratory Therapy. At that time, his heart rate was in the 120s and his sats were in the 90s. On my examination, the patient was cold and mottled up through his thighs. Initially, the patient was admitted as a DNR/DNI status, but family had reported that they were not ready to let him go, and had requested for him to be a full code. Thus, the patient was bagged. Upon arrival to the patient's room, I provided support to the parents and discussed with them that if we would stop bagging, that he would most likely pass away fairly quickly within a few minutes of stopping bagging, as at this point, this is the only thing keeping him alive. I have discussed the disease burden of his cancer, and that anything we did at this point would serve only to prolong his pain and suffering. Given this, family did allow us to stop bagging the patient. He had very minimal agonal breaths after the mask was removed. The patient peacefully with his family at his bedside at 11:32 a.m. on October 04, 2016. Our fixed wing aircraft flight mechanic was at bedside, and provided prayer per family's request. winder fixer was also present and provided emotional support PATIENT'S NAME: VITOR DEL TORO [facility] AGE: 50 Y [address] ROOM: [place] [address] LOCATION: GICU ADMIT DATE: 10/04/2016 Consultation DISCHARGE DATE: 10/04/2016 FAMILY PHYSICIAN: Sky Norwood MD ATTENDING PHYSICIAN: Alfredo Ruiz as well. A total of 40 minutes was spent at bedside initially, providing education and counseling on end-of-life and then bereavement support. Family appeared to be appropriately grieving, and Hospice will plan to do a bereavement followup as well. Thank you for allowing me to assist with this patient and his family. KAYLYN HERMOSILLO NP FOR MERNA VICKERS MD DLS/modl /[id number] CC: Chiqui Morin MD d: 10/09/16 2100 t: 10/10/16 0902, CONSULTATION REPORT
--- NOTE | ~2016-10-04 | HP ---
PATIENT'S NAME: VITOR DEL TORO [facility] AGE: 50 Y [address] ROOM: [place] [address] LOCATION: [facility] ADMIT DATE: 10/04/2016 History & Physical DISCHARGE DATE: FAMILY PHYSICIAN: Sky Norwood MD ATTENDING PHYSICIAN: Alfredo Ruiz DATE OF SERVICE: CHIEF COMPLAINT: Seizure. 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 The patient was given medications in the emergency department including Keppran and Ativan to control his seizures. The emergency department want to admit for seizure control. The patient currently is nonverbal and not responsive to questions. PAST MEDICAL HISTORY: 1. Melanoma with metastasis to the brain. 2. Asthma. 3. Hypertension. PAST SURGICAL HISTORY: 1. Bladder surgery. 2. Skin biopsy. 3. Melanoma skin removal surgery. ALLERGIES: NO KNOWN MEDICAL ALLERGIES. MEDICATIONS: Please see list. FAMILY HISTORY: Significant for cancer, diabetes, hyperlipidemia, and hypertension. SOCIAL HISTORY: The patient does do chewing tobacco and reports occasional alcohol use, but denies illicit drug use per prior H and P. REVIEW OF SYSTEMS: Unable to obtain review of systems due to the patient being nonverbal. PATIENT'S NAME: VITOR DEL TORO [facility] AGE: 50 Y [address] ROOM: [place] [address] LOCATION: [facility] ADMIT DATE: 10/04/2016 History & Physical DISCHARGE DATE: FAMILY PHYSICIAN: Sky Norwood MD ATTENDING PHYSICIAN: Alfredo Ruiz PHYSICAL EXAMINATION: VITAL SIGNS: Reviewed. GENERAL: The patient is nonverbal and does not respond to verbal commands. HEENT: Head; normocephalic and atraumatic. Eyes; generally closed, pupils reactive to light,conjunctivae clear. No scleral icterus. Mouth and oropharynx, mucosa moist. NECK: Supple. HEART: Regular rate and rhythm. LUNGS: Clear to auscultation bilaterally. ABDOMEN: Bowel sounds present. No masses. EXTREMITIES: No cyanosis. VASCULAR: Pulses +2 with good capillary refill. NEUROLOGIC: Unable to determine accurate neurological exam with patient just recently having Ativan and not responding to verbal request but does withdraw to painful stimuli. IMAGING STUDIES: CT of head and brain showed multiple hemorrhagic neoplastic lesions along with vasogenic edema. ASSESSMENT: 1. Seizures. 2. Melanoma with metastasis to the brain. 3. Asthma. 4. Hypertension. PLAN: The patient was admitted to the ICU as a hospice patient and was reaffirmed that he was DNR/DNI. I discussed the severity of the the patient's condition to the family that was present. The lokie engineer was consulted and patient was discussed with Dr Harris. The patient's blood pressure was elevated and laetalol was given. Teleneurology was consulted. The patient was unresponsive but able to maintain airway at the time of evaluation. The patient started having difficulty breathing and became hypoxic. The nursing staff started manually bagging the patient to maintain oxygen levels. Palliative Care was consulted and Dr. Harris was called and notified and he discussed with the family the options for the patient. The patient was a hospice patient and DNR/DNI and it was decided to impliment comfort measures. The patient peacefully at 11:32 a.m. on 10/04/2016 with the family present. DISCHARGE CONDITION: . DISPOSITION: Home. PATIENT'S NAME: VITOR DEL TORO [facility] AGE: 50 Y [address] ROOM: [place] [address] LOCATION: [facility] ADMIT DATE: 10/04/2016 History & Physical DISCHARGE DATE: FAMILY PHYSICIAN: Sky Norwood MD ATTENDING PHYSICIAN: Alfredo Ruiz MD RLG/gabriel /[id number] D: 014 T: 856 HISTORY & PHYSICAL
--- NOTE | ~2016-10-04 | ER ---
PATIENT'S NAME: VITOR DEL TORO [facility] AGE: 50 Y [address] ROOM: [address] [place], [place] [address] LOCATION: GICU ADMIT DATE: 10/04/2016 ER/Outpatient Report DISCHARGE DATE: 10/04/2016 FAMILY PHYSICIAN: Sky Norwood MD ATTENDING PHYSICIAN: Alfredo Ruiz Time of Arrival: 0613 hours. Time of Evaluation: 0634 hours. IDENTIFICATION: A 50-year-old male. CHIEF COMPLAINT: Seizures. HISTORY OF PRESENT ILLNESS: The patient is a 50-year-old male with a history of metastatic melanoma who was treated with chemotherapy and radiation, but has had increased size of metastatic lesions to the brain. The patient has had multiple seizures in the past and was recently admitted on 09/21/2016 with recurrent seizures. At that time, he had persistent multiple hemorrhagic lesions in the brain parenchyma per MRI that had increased in size with associated vasogenic edema that has also worsened. The patient had a palliative care consult during that hospitalization and the patient was discharged home on [facility]. Throughout the night, he has had several seizures, generalized tonic- clonic seizures lasting for up to 45 minutes according to his parents. He does live with his parents. Yesterday, he was complaining of severe headache all day. He has had no fever or chills. The patient was not actively seizing on arrival but shortly after arrival had a brief generalized tonic-clonic seizure and was postictal, so no history was obtained from the patient. He is not following any commands or answering any questions. History was reviewed from parents and the chart. ALLERGIES: NO KNOWN DRUG ALLERGIES. CURRENT MEDICATIONS: 1. Bystolic 10 mg daily. 2. Lisinopril 20 mg daily. 3. Aldactone was discontinued. 4. Synthroid 0.05 mg daily. 5. Keppra 1000 mg b.i.d., he has not taken last evening dose or this morning dose. 6. Prilosec 40 mg daily. 7. Tramadol p.r.n. PATIENT'S NAME: VITOR DEL TORO [facility] AGE: 50 Y [address] ROOM: [address] [address] LOCATION: GICU ADMIT DATE: 10/04/2016 ER/Outpatient Report DISCHARGE DATE: 10/04/2016 FAMILY PHYSICIAN: Sky Norwood MD ATTENDING PHYSICIAN: Alfredo Ruiz 8. Dexamethasone 4 mg 4 times daily. 9. Cephalexin, but I do not know the dosing of that. 10. Nystatin liquid swish and swallow. 11. Zolpidem 10 mg at bedtime. 12. Nystatin ointment. 13. Mylanta and Tylenol p.r.n. 14. Gabapentin 300 mg t.i.d. 15. Roxanol 5 mg every 3 hours p.r.n. pain. 16. Ativan 0.5 to 1 mg q.4 hours p.r.n. anxiety and seizures. MEDICAL PROBLEMS: Metastatic melanoma, hypertension, seizure disorder. PAST SURGICAL HISTORY: Wide excision of melanoma site per Dr. Hunt, left upper back 2014, left axillary dissection May of 2015, epidural steroid injection 2015. SOCIAL HISTORY: The patient is currently living with his parents. Tobacco use, none noted. Prior history of chewing tobacco. Alcohol use, none noted. Prior history of alcoholism. FAMILY HISTORY: Records reflect a family history of breast cancer in grandmother and hypertension in father. REVIEW OF SYSTEMS: Unable to obtain from the patient. PHYSICAL EXAMINATION: VITAL SIGNS: Weight 81 kg. Blood pressure 144/97, pulse 67, respirations 20, temperature 98.6, and saturations 95% on room air. GENERAL: A 50-year-old male who is agitated at times and postictal. HEENT: Head: Normocephalic. Eyes: Mostly are closed. He does not open them spontaneously. Pupils are reactive. He has some scleral edema. Nose: Mucosa pink. No lesions. Mouth: No lesions. Pharynx benign. NECK: Supple. No lymphadenopathy. LUNGS: Clear to auscultation. Breath sounds are equal. HEART: Regular rate and rhythm. ABDOMEN: Bowel sounds present. Soft, nondistended. Appears to be nontender. SKIN: [place], warm, and dry. NEURO: The patient is not alert, does not follow commands. [place] Coma Score is 10. He does move all extremities and localizes pain. He has no lower extremity edema. No bony tenderness. No skin rashes or lesions. PATIENT'S NAME: VITOR DEL TORO [facility] AGE: 50 Y [address] ROOM: [id number] [place], [place] [address] LOCATION: [facility] ADMIT DATE: 10/04/2016 ER/Outpatient Report DISCHARGE DATE: 10/04/2016 FAMILY PHYSICIAN: Sky Norwood MD ATTENDING PHYSICIAN: Alfredo Ruiz EMERGENCY DEPARTMENT COURSE: The patient had a generalized tonic-clonic seizure activity here and IV was initiated. He was given 1 mg of Ativan. Keppra 1000 mg IV was ordered from pharmacy and given here in the ER. Parents were concerned that he has been complaining of severe headaches and morphine was given for pain. DIAGNOSTIC DATA: Sodium 132, potassium 4.3, chloride 92, CO2 30, BUN 25, creatinine 0.9, blood sugar 153. Liver enzymes; ALT elevated at 128. Hemoglobin 14.7, hematocrit 39.4, platelets 149, white count 17.8, 86% neutrophils. MEDICAL DECISION MAKING: The patient's blood pressure remained significantly elevated 247/128 to 238/107. The patient was given dexamethasone 8 mg IV. Comfort care measures were confirmed with the family. Head CT stable overall appearance since 09/21/2016. Multiple hemorrhagic neoplastic lesions in the brain parenchyma of both cerebral hemispheres with associated local mass effect and vasogenic edema. The patient was given labetalol 10 mg IV x2 for hypertension. Palliative care consult was requested. Dr. Ruiz was notified for Dr. Norwood for admission. He requested admission. Hospitalist was consulted and planned for admission, but then spoke with Dr. Ruiz and Dr. Ruiz actually ended up being primary admitting for this patient. Dr. Dunlap was notified and again palliative care consult was obtained. The patient here in the emergency room had some snoring respirations and was not alert. I did discuss the gravity of the situation with his parents. IMPRESSION AND PLAN: 1. Seizures. The patient has had multiple recurrent seizures and tonight the patient was given 1000 mg Keppra IV, total of 2 mg of Ativan IV in the emergency room. 2. Melanoma with significant brain metastasis. The patient on [facility]. I did confirm that he is a DNR/DNI with his family and palliative care consult was obtained. 3. Hypertension. The patient's blood pressure significantly elevated here in the ER. We gave him labetalol 10 mg IV, slowly x2. MD VESNA REYNAGA/gabriel /[id number] d: 10/05/1647 t: 10/05/16 0835, OUTPATIENT REPORT
[2016-10-04 07:32] LABS: BASOPHIL # 0.1 K/uL (0.0-0.2); BASOPHIL % 0.3 %; HEMATOCRIT 39.4 % (37.0-53.0); HEMOGLOBIN 14.7 g/dL (12.0-17.0); IMMATURE GRANULOCYTE # 0.6 K/uL (0.0-0.3); IMMATURE GRANULOCYTE % 3.5 %; LYMPHOCYTE # 0.6 K/uL (0.8-4.0); LYMPHOCYTE % 3.1 %; MCH 38.5 pg (27.0-34.0); MCHC 37.3 gm/dL (32.0-36.5); MCV 103.1 fl (83.0-98.0); MONOCYTE # 1.1 K/uL (0.0-1.0); MONOCYTE % 6.4 %; MPV 8.5 fl (9.4-12.4); NEUTROPHIL # (ANC) 15.4 K/uL (1.4-9.0); NEUTROPHIL % 86.7 %; NRBC % 0.1 /100WBC (0-0.00); PLATELET COUNT 149 K/uL (150-450); RBC 3.82 M/uL (4.00-6.00); RDW-CV 11.5 % (11.9-14.6)
[2016-10-04 07:33] LABS: WBC 17.8 K/uL (4.0-11.0)
[2016-10-04 07:48] LABS: ALBUMIN 3.2 gm/dL (3.5-5.0); ALK PHOS 74 IU/L (33-138); ALT 128 IU/L (12-78); ANION GAP 14.3 (10.0-19.0); AST 37 IU/L (10-40); BLOOD UREA NITROGEN 25 mg/dL (6-24); CALCIUM 8.4 mg/dL (8.5-10.5); CHLORIDE 92 mMol/L (96-110); CO2 30 mMol/L (22-32); CREATININE 0.9 mg/dL (0.6-1.3); POTASSIUM 4.3 mMol/L (3.7-5.1); SODIUM 132 mMol/L (135-145); TOTAL PROTEIN 6.4 g/dL (6.0-8.4)
[2016-10-04 07:53] LABS: TOTAL BILIRUBIN 0.7 mg/dL (0.0-1.5)
== END 2016-10-04 11:32 | disposition expired | DRG 54 ==
LOC: GMED 06:13 → GICU 08:46
PROVIDERS: Family Medicine; ADMIT Family Medicine
DX: C79.31 Secondary malignant neoplasm of brain (principal); G93.6 Cerebral edema; I10 Essential (primary) hypertension; J45.909 Unspecified asthma, uncomplicated; Z66 Do not resuscitate; Z51.5 Encounter for palliative care; G40.409 Other generalized epilepsy and epileptic syndromes, not intractable, without status epilepticus; F17.220 Nicotine dependence, chewing tobacco, uncomplicated; Z85.820 Personal history of malignant melanoma of skin
CPT/HCPCS: J1100; J1953; J2060; J2270; J7040

== ENCOUNTER → 2016-10-04 | Outpatient (CLI) | payer OTHER ==
[~2016-10-04] MED LIST changes: +ATIVAN 0.5MG0.5 MG PO; +DECADRON1 MG PO; +LEVOTHROID (SY50 MCG PO; +MORPHINE 20MG/ML PO; +MYCOSTATIN OINT30 GM TOP; +PRINIVIL (ZESTR20 MG PO; +TYLENOL325 MG PO
== END | disposition disaster alternative care site (69) ==
LOC: GAMB 05:54
DX: R41.82 Altered mental status, unspecified (principal); R41.0 Disorientation, unspecified; Z85.841 Personal history of malignant neoplasm of brain; Z79.891 Long term (current) use of opiate analgesic
CPT/HCPCS: A0425; A0429